=== PATIENT | male | born 1990 | race Caucasian/White ===

== ENCOUNTER 2018-07-19 08:26 | Day surgery (SDC) | payer OTHER ==
[~2018-07-19] VITALS: Ht 172.7 cm; Wt 143.0 kg
--- NOTE | 2018-07-19 08:54 | PREAC ---
Date/Time of Note Date/Time of Note DATE: 07/19/18 TIME: 08:53 Anesthesia Eval and Record Evaluation Time Pre-Procedure Interview DATE: 07/19/18 TIME: 08:53 Age 27 Sex male NPO: 8 hrs Preoperative diagnosis Rectal bleeding Planned procedure Colonoscopy Past Medical History Past Medical History: Includes Cardio: Dyslipidemia Endo: Diabetes GI: Morbid obesity Surgery & Anesthesia Issues No known issue Meds Anticoagulation: No Beta Jimenez within 24 hr: No Reason Beta Jimenez not given: Pt. not on B-Jimenez Reported Medications Fenofibrate Nanocrystallized* (Tricor*) 145 Mg Tablet, 145 MG PO DAILY, TAB 07/19/18 Pravastatin Sodium* (Pravastatin Sodium*) 40 Mg Tablet, 40 MG PO HS, TAB 07/19/18 Insulin Glargine,Hum.rec.anlog (Basaglar Kwikpen U-100) 100 Unit/1 Ml Insuln.pen, 45 UNIT SC PC DINNER BEDTIME, EA 07/19/18 Meds reviewed: Yes Allergies Coded Allergies: No Known Drug Allergies (Verified Allergy, Unknown, 07/19/18) Allergies Reviewed: Yes Labs/Studies Labs Reviewed: Reviewed by anesthesiologist test: N/A Pre-procedure Exam Airway: Adequate mouth opening Mallampati: Mallampati II Teeth: Normal Lung: Normal Heart: Normal ASA Physical Status ASA physical status: 3 Emergency: None Planned Anesthetic General/MAC: MAC Planned Pain Management Parenteral pain med Pre-operative Attestations Prior to commencing anesthesia and surgery, the patient was re-evaluated, there was verification of: *The patient's identity *The results of appropriate recent lab work and preoperative vital signs *The above evaluation not changing prior to induction *Anesthetic plan, risk benefits, alternative and complications discussed with patient/family; questions answered; patient/family understands, accepts and wishes to proceed. JEANNIE IRIZARRY MD Jul 19, 2018 08:53
[2018-07-19 08:56] VITALS: Ht 172.7 cm; Wt 143.0 kg
[2018-07-19] MEDS ORDERED: FENO145T25 PO (09:07)
[2018-07-19] MEDS ORDERED: INSU100I33 SC (09:07)
[2018-07-19] MEDS ORDERED: PRAV40TA76 PO (09:07)
[2018-07-19 09:32] VITALS: BP 135/87; PULSE 65; RESP 18
[2018-07-19] MEDS ORDERED: PROPOFOL 40 ML ONE (09:33)
[2018-07-19] MEDS ORDERED: FENTAnyl 50 MCG/ML VIAL IV PRN ×3 (10:00)
[2018-07-19] MEDS ORDERED: MIDAZOLAM 1 MG/ML 2 ML INJ IV PRN (10:00)
[2018-07-19] MEDS ORDERED: hydrALAzine 20 MG INJ IV PRN (10:00)
[2018-07-19] MEDS ORDERED: MEPERIDINE 25 MG INJ IV PRN (10:00)
[2018-07-19] MEDS ORDERED: LABETALOL HCL 20MG INJ IV PRN (10:00)
[2018-07-19] MEDS ORDERED: ONDANSETRON 4 MG INJ IV PRN (10:00)
[2018-07-19] MEDS ORDERED: DIPHENHYDRAMINE 50 MG INJ IV PRN (10:00)
[2018-07-19] MEDS ORDERED: METOCLOPRAMIDE 10 MG INJ IV PRN (10:00)
[2018-07-19] MEDS ORDERED: EPHEDrine SULFATE 50 MG/5 ML SYG IV PRN (10:00)
[2018-07-19] MEDS ORDERED: OXYCODONE/ACETAMINOPHEN (5/325) TAB PO PRN ×2 (10:00)
[2018-07-19 10:26] VITALS: BP 143/78; PULSE 64; RESP 20
--- NOTE | 2018-07-19 10:45 | PAC ---
Date/Time of Note Date/Time of Note DATE: 07/19/18 TIME: 10:45 Post-Anesthesia Notes Post-Anesthesia Note Last documented vital signs Vital Signs Date Temp Pulse Resp B/P (MAP) Pulse Ox O2 O2 Flow FiO2 Time Delivery Rate 07/19/18 64 20 143/78 97 Room Air 10:26 (99) 07/19/18 97.8 09:32 Activity: WNL Respiratory function: WNL Cardiovascular function: WNL Mental status: Baseline Pain reasonably controlled: Yes Hydration appropriate: Yes Nausea/Vomiting absent: Yes Comments BT:98.2 JEANNIE IRIZARRY MD Jul 19, 2018 10:45
== END 2018-07-19 13:43 | disposition home or self-care (01) ==
LOC: GIL 08:26
PROVIDERS: ATTEND Internal Medicine Gastroenterology
DX: K57.32 Diverticulitis of large intestine without perforation or abscess without bleeding (principal); E11.9 Type 2 diabetes mellitus without complications
CPT/HCPCS: 45378; 82962; Z7610